=== PATIENT | male | born 1995 | race Caucasian/White ===

== ENCOUNTER 2017-06-20 18:16 | Emergency (ER) | payer OTHER ==
[2017-06-20] MEDS ORDERED: ONDANSETRON INJ 2 MG/ML 2 ML VIAL ONE (18:23)
[2017-06-20] MEDS ORDERED: SODIUM CHLORIDE 0.9% 1000ML 1,000 ML IV STA (18:27)
[2017-06-20 18:29] VITALS: TEMP 36.3; O2SAT 100
--- NOTE | 2017-06-20 18:41 | EMERGENCY ROOM VISIT NOTE ---
History Report prepared by Jt: Mike Roe Under the Supervision of: Dr. Don Clemons M.D. First contact with patient: 18:20 Chief Complaint: ALCOHOL OVERDOSE Stated Complaint: ETOH, History of Present Illness The patient is a 21 year old male who presents to the Emergency Room with complaints of vomiting that began recently. This HPI is limited secondary to the patient's unresponsive state. Per EMS and nursing staff, the patient came to [facility] to "get fucked up." While he was with the police he was responsive and alert. He told them that he drank alcohol and took MDMA. There was no trauma reported. Shortly after, he began to vomit and became unresponsive. EMS arrived to bring him to the hospital. He is currently diaphoretic. Source of History: EMS, nursing staff History Limited By: other (Unresponsive state) Onset: [employer] Position: other (GI) Symptom Intensity: moderate Quality: other (Vomiting) Timing: intermittent Associated Symptoms: + diaphoresis Note: The patient is unresponsive. Review of Systems ROS is limited secondary to his unresponsive state. Past Medical & Surgical Unable to obtain secondary to the patient's unresponsive state Family History Unable to obtain secondary to the patient's unresponsive state. Social History Alcohol Use: occasionally Drug Use: other (MDMA) Occupation Status: student Unable to complete secondary to the patient's unresponsive state. Current/Historical Medications Unable to Obtain Active Prescriptions or Reported Meds Physical Exam Vital Signs Date Time Temp Pulse Resp B/P (MAP) Pulse Ox O2 Delivery O2 Flow Rate FiO2 06/20/17 19:28 101 12 127/79 98 Room Air 06/20/17 18:29 100 Room Air 06/20/17 18:29 36.3 77 16 145/80 100 Room Air Physical Exam GENERAL: Patient is in no acute distress. HEENT: PERRL bilaterally with a wandering gaze. No acute trauma, normocephalic atraumatic, no scalp hematoma, mucous membranes moist, no nasal congestion, no scleral icterus. NECK: No stridor, no adenopathy, no meningismus, trachea is midline. LUNGS: Clear to auscultation bilaterally, no wheeze, no rhonchi, breath sounds equal. HEART: Without murmurs gallops or rubs, regular rate and rhythm. ABDOMEN: Soft, nontender, bowel sounds positive, no hernias, no peritonitis. EXTREMITIES: No cyanosis or edema, full range of motion of all the joints without pain or difficulty, no signs for acute trauma. NEUROLOGIC: Verbally unresponsive. Does move all 4 extremities. Seems intoxicated. SKIN: No rash, no jaundice, moderate diaphoresis. Medical Decision & Procedures ER Provider Diagnostic Interpretation: Radiology results as stated below per my review and radiologist interpretation: SINGLE VIEW CHEST CLINICAL HISTORY: Alcohol intoxication. Change in mental status. FINDINGS: An AP, portable, upright chest radiograph is obtained. No prior studies are available for comparison at the time of dictation. The examination is degraded by portable technique and patient rotation. The cardiomediastinal silhouette is unremarkable. The lungs and pleural spaces are clear. No pneumothorax is seen. The bony thorax is grossly intact. IMPRESSION: No active disease in the chest. Electronically signed by: Don Whitmore M.D. 06/20/2017 7:09 PM Dictated Date/Time: 06/20/2017 7:[address] SCAN OF THE BRAIN WITHOUT IV CONTRAST CLINICAL HISTORY: Intoxication. Change in mental status. COMPARISON STUDY: No priors. TECHNIQUE: Unenhanced axial CT scan of the brain is performed from the vertex to the skull base. A dose lowering technique was utilized adhering to the principles of ALARA. The patient was scanned twice due to motion artifact. CT DOSE: 1074.96 mGy.cm FINDINGS: Brain parenchyma: The brain parenchyma is normal in appearance. There is no hemorrhage, mass effect, or evidence of acute territorial ischemia by CT criteria. Barboza-white matter is preserved. No extra-axial fluid collection is seen. Ventricles, sulci, cisterns: Normal in configuration. Intracranial vasculature: The visualized intracranial vasculature at the skull base is normal in appearance. Calvarium: No depressed calvarial fracture is seen. Soft tissues: There is a small left parietal scalp contusion. Sinuses and mastoids: The visualized paranasal sinuses are clear. The mastoid air cells are well pneumatized. Orbits: The bony orbits are grossly intact. IMPRESSION: No acute intracranial abnormality. Electronically signed by: Don Whitmore M.D. 06/20/2017 7:50 PM Dictated Date/Time: 06/20/2017 7:47 PM Laboratory Results 06/20/17 18:40 06/20/17 18:40 Test 06/20/17 18:30 06/20/17 18:40 Red Blood Count 5.08 M/uL (4.7-6.1) Mean Corpuscular Volume 87.0 fL (80-100) Mean Corpuscular Hemoglobin 30.7 pg (25-34) Mean Corpuscular Hemoglobin Concent 35.3 g/dl (32-36) RDW Standard Deviation 37.9 fL (36.4-46.3) RDW Coefficient of Variation 11.9 % (11.5-14.5) Mean Platelet Volume 10.1 fL (7.4-10.4) Anion Gap 12.0 mmol/L (3-11) Estimated GFR () 115.7 Estimated GFR (Non- 99.8 BUN/Creatinine Ratio 11.9 (10-20) Calcium Level 8.7 mg/dl (8.5-10.1) Ethyl Alcohol mg/dL 318.0 mg/dl (0-3) Laboratory results reviewed by me. Medications Administered Medications (Trade) Dose Ordered Sig/José Route Start Time Stop Time Status Last Admin Dose Admin Ondansetron HCl (Zofran Inj) 4 mg STK-MED ONCE .ROUTE 06/20/17 18:23 06/20/17 18:24 DC 06/20/17 18:23 4 MG Sodium Chloride 1,000 ml @ 999 mls/hr Q1H1M STAT IV 06/20/17 18:27 06/20/17 19:27 DC 06/20/17 18:27 999 MLS/HR ECG Indication: toxicologic Rate (beats per minute): 72 Rhythm: normal sinus Findings: no acute ischemic change, no ectopy, other (Diffuse early repolarization) ED Course 1820: The patient was evaluated in room C9. A complete history and physical exam was performed. 1822: Ordered Zofran Inj 4 mg .ROUTE 1826: Ordered Sodium Chloride 1000 ml @ 999 mls/hr IV 2000: After reevaluation, the patient seems to be more awake and alert. He intermittently laughs with the nursing staff. 2030: The patient was signed out to Dr. Hung at the change in shifts. Medical Decision Differential diagnosis includes but is not limited to drug and alcohol abuse, vomiting, dehydration, head trauma, aspiration, electrolyte imbalance, dysrhythmia, and infection. There is a mild leukocytosis consistent likely with his vomiting. No concerning anemia. No significant electrolyte abnormality or kidney failure. Alcohol level is over 300, consistent with alcohol abuse. Urine toxicology tests are pending. Chest x-ray does not show pneumonia, CHF or pneumothorax. EKG shows a normal sinus rhythm, there is some early repolarization, no acute ischemia. Brain CT shows no acute bleed or mass effect. The patient has been here for about 2 hours, he already is showing signs of improvement. He is more interactive, his O2 saturation is adequate, he is maintaining his airway. He does respond to the nursing staff at times. The patient was given IV Zofran upon arrival, this helped the vomiting. He received IV saline for hydration. The patient's presentation is consistent with an alcohol overdose, there may be some illicit drugs involved here as well, urine tox is pending. The case has been assumed by Dr. Hung. He has assumed care at shift change. Medication Reconcilliation Current Medication List: was personally reviewed by me Blood Pressure Screening Patient's blood pressure: Normal blood pressure Blood pressure disposition: Did not require urgent referral Impression Primary Impression: Alcohol overdose Scribe Attestation The scribe's documentation has been prepared under my direction and personally reviewed by me in its entirety. I confirm that the note above accurately reflects all work, treatment, procedures, and medical decision making performed by me. Departure Information Dispostion Still a Patient Prescriptions Unable to Obtain Active Prescriptions or Reported Meds Patient Instructions My [facility] Problem Qualifiers Primary Impression: Alcohol overdose Encounter type: initial encounter Injury intent: accidental or unintentional Qualified Codes: T51.91XA - Toxic effect of unspecified alcohol , accidental (unintentional), initial encounter
[2017-06-20 18:55] LABS: HEMATOCRIT 44.2 % (42-52); MEAN CORPUSCULAR HEMOGLOBIN 30.7 pg (25-34); MEAN CORPUSCULAR HGB CONC 35.3 g/dl (32-36); MEAN PLATELET VOLUME 10.1 fL (7.4-10.4); PLATELET COUNT 291 K/uL (130-400); RED BLOOD COUNT 5.08 M/uL (4.7-6.1); WHITE BLOOD COUNT 13.18 K/uL (4.8-10.8)
--- NOTE | 2017-06-20 19:11 | DIAGNOSTIC IMAGING REPORT ---
SINGLE VIEW CHEST CLINICAL HISTORY: Alcohol intoxication. Change in mental status. FINDINGS: An AP, portable, upright chest radiograph is obtained. No prior studies are available for comparison at the time of dictation. The examination is degraded by portable technique and patient rotation. The cardiomediastinal silhouette is unremarkable. The lungs and pleural spaces are clear. No pneumothorax is seen. The bony thorax is grossly intact. IMPRESSION: No active disease in the chest. Electronically signed by: Don Whitmore M.D. 06/20/2017 7:09 PM Dictated Date/Time: 06/20/2017 7:09 PM
[2017-06-20 19:13] LABS: BLOOD UREA NITROGEN 13 mg/dl (7-18); BUN/CREATININE RATIO 11.9 (10-20); CALCIUM 8.7 mg/dl (8.5-10.1); CARBON DIOXIDE 22 mmol/L (21-32); CHLORIDE 108 mmol/L (98-107); CREATININE 1.06 mg/dl (0.60-1.40); GLUCOSE 105 mg/dl (70-99); POTASSIUM 3.2 mmol/L (3.5-5.1); SODIUM 142 mmol/L (136-145)
--- NOTE | 2017-06-20 19:51 | DIAGNOSTIC IMAGING REPORT ---
CT SCAN OF THE BRAIN WITHOUT IV CONTRAST CLINICAL HISTORY: Intoxication. Change in mental status. COMPARISON STUDY: No priors. TECHNIQUE: Unenhanced axial CT scan of the brain is performed from the vertex to the skull base. A dose lowering technique was utilized adhering to the principles of ALARA. The patient was scanned twice due to motion artifact. CT DOSE: 1074.96 mGy.cm FINDINGS: Brain parenchyma: The brain parenchyma is normal in appearance. There is no hemorrhage, mass effect, or evidence of acute territorial ischemia by CT criteria. Barboza-white matter is preserved. No extra-axial fluid collection is seen. Ventricles, sulci, cisterns: Normal in configuration. Intracranial vasculature: The visualized intracranial vasculature at the skull base is normal in appearance. Calvarium: No depressed calvarial fracture is seen. Soft tissues: There is a small left parietal scalp contusion. Sinuses and mastoids: The visualized paranasal sinuses are clear. The mastoid air cells are well pneumatized. Orbits: The bony orbits are grossly intact. IMPRESSION: No acute intracranial abnormality. Electronically signed by: Don Whitmore M.D. 06/20/2017 7:50 PM Dictated Date/Time: 06/20/2017 7:47 PM
[2017-06-20 20:39] LABS: BENZODIAZEPINE, URINE NEG (NEG); COCAINE,URINE NEG (NEG); PHENCYCLIDINE, URINE NEG (NEG)
--- NOTE | 2017-06-21 01:29 | EMERGENCY ROOM VISIT NOTE ---
ED Visit Note First contact with patient: 01:27 s/o from Dr. Clemons. Etoh intoxication. Etoh 300s. CT head negative. Labs unremarkable. D/c when sober. Patient re-evaluated and clinically sober. D/c'd per [facility].
[2017-06-21 01:37] VITALS: BP 133/70; PULSE 77; O2SAT 99
== END 2017-06-21 01:37 | disposition home or self-care (01) ==
LOC: C.EDC 18:23 → EDBD 18:23 → C.EDC 06-21 01:37
DX: T51.91XA Toxic effect of unspecified alcohol, accidental (unintentional), initial encounter (principal); E86.0 Dehydration; R11.10 Vomiting, unspecified